=== PATIENT | female | born 1975 | race Two or more races ===

== ENCOUNTER 2017-05-31 07:24 | Day surgery (SDC) | payer OTHER ==
[~2017-05-31 07:24] MED LIST: MULTI-DAY PLUS1 EACH PO
== END 2017-05-31 16:00 | disposition home or self-care (01) ==
LOC: CIR.AMB 07:24
DX: N84.0 Polyp of corpus uteri (principal)

== ENCOUNTER 2019-04-22 14:10 | Emergency (ER) | payer OTHER ==
[~2019-04-22] VITALS: Ht 165.1 cm; Wt 89.8 kg
[2019-04-22] MEDS ORDERED: DEPAKOTE ER250 MG PO (14:17)
[2019-04-22] MEDS ORDERED: RISPERDAL1 MG PO (14:18)
[2019-04-22] MEDS ORDERED: ATIVAN0.5 M1 PO (14:18)
[2019-04-22] MEDS ORDERED: ATIVAN1 M1 PO (14:18)
== END 2019-04-22 21:20 | disposition home or self-care (01) ==
LOC: ER 14:10
DX: B34.9 Viral infection, unspecified (principal); R53.81 Other malaise; F41.1 Generalized anxiety disorder

== ENCOUNTER 2022-05-31 13:20 | Outpatient (CLI) | payer OTHER ==
[~2022-05-31 13:20] MED LIST changes: +ATIVAN0.5 M1 PO; +ATIVAN1 M1 PO; +DEPAKOTE ER250 MG PO; +RISPERDAL1 MG PO
== END 2022-05-31 13:33 | disposition home or self-care (01) ==
LOC: MAMO-SONO 13:20
PROVIDERS: ATTEND Obstetrics & Gynecology
DX: M54.2 Cervicalgia (principal); M54.59 Other low back pain; M54.6 Pain in thoracic spine; N60.11 Diffuse cystic mastopathy of right breast; N81.5 Vaginal enterocele

== ENCOUNTER 2022-06-02 15:05 | Outpatient (CLI) | payer OTHER | END 2022-06-02 15:12 | disposition home or self-care (01) | LOC: EKG 15:05 | PROVIDERS: ATTEND Obstetrics & Gynecology | DX: N18.5 Chronic kidney disease, stage 5 (principal); R07.89 Other chest pain ==

== ENCOUNTER 2022-06-29 05:30 | Inpatient (IN) | payer OTHER ==
[~2022-06-29 05:30] MED LIST changes: +RESTORIL7.5 MG PO
[2022-06-30] MEDS ORDERED: BENZTROPINE MESY2 MG (08:16)
[2022-06-30] MEDS ORDERED: RESTORIL30 MG (08:16)
[2022-06-30] MEDS ORDERED: DIVALPROEX SOD500 MG (08:16)
[2022-06-30] MEDS ORDERED: TRAZODONE HCL50 MG (08:17)
== END 2022-07-01 12:08 | disposition home or self-care (01) | DRG 748 ==
LOC: CIR.AMB 05:30 → O/R 09:51 → CIR.AMB 10:15 → OB/GYN 12:01
PROVIDERS: ADMIT Obstetrics & Gynecology; ATTEND Obstetrics & Gynecology
PROC: 0JQC0ZZ Repair Pelvic Region Subcutaneous Tissue and Fascia, Open Approach (ICD-10-PCS; 2022-06-29)
PROC: 0JQC0ZZ Repair Pelvic Region Subcutaneous Tissue and Fascia, Open Approach (ICD-10-PCS; principal; 2022-06-29 07:00)
DX: N81.6 Rectocele (principal); N81.5 Vaginal enterocele; Z20.822 Contact with and (suspected) exposure to COVID-19